=== PATIENT | female | born 1940 | race Caucasian/White ===

== ENCOUNTER → 2016-04-30 | Outpatient (REF) | payer OTHER ==
[2016-04-30 11:46] LABS: ALBUMIN 3.6 GM/DL (3.2-5.2); ALBUMIN/GLOBULIN RATIO 1.09 (1.00-1.93); ALKALINE PHOSPHATASE 91 U/L (45-117); ALT/SGPT 24 U/L (12-78); ANION GAP 9 MEQ/L (8-16); AST/SGOT 16 U/L (15-37); BILIRUBIN,TOTAL 0.4 MG/DL (0.2-1.0); BLOOD UREA NITROGEN 18 MG/DL (7-18); CALCIUM LEVEL 9.1 MG/DL (8.8-10.2); CARBON DIOXIDE LEVEL 27 MEQ/L (21-32); CHLORIDE LEVEL 107 MEQ/L (98-107); GLOMERULAR FILTRATION RATE > 60.0 (>39); GLUCOSE, FASTING 188 MG/DL (83-110); SODIUM LEVEL 143 MEQ/L (136-145); TOTAL PROTEIN 6.9 GM/DL (6.4-8.2)
[2016-04-30 11:47] LABS: POTASSIUM SERUM 5.2 MEQ/L (3.5-5.1)
== END ==
LOC: M SFHCPLAZ 07:51
PROVIDERS: ATTEND Nurse Practitioner Family
DX: E11.8 Type 2 diabetes mellitus with unspecified complications (principal)

== ENCOUNTER → 2016-10-27 | Outpatient (REF) | payer OTHER ==
[2016-10-27 12:18] LABS: ALBUMIN 3.6 GM/DL (3.2-5.2); ALBUMIN/GLOBULIN RATIO 1.03 (1.00-1.93); ALKALINE PHOSPHATASE 93 U/L (45-117); ALT/SGPT 29 U/L (12-78); ANION GAP 10 MEQ/L (8-16); AST/SGOT 20 U/L (15-37); BILIRUBIN,TOTAL 0.3 MG/DL (0.2-1.0); BLOOD UREA NITROGEN 19 MG/DL (7-18); CARBON DIOXIDE LEVEL 24 MEQ/L (21-32); CHLORIDE LEVEL 110 MEQ/L (98-107); CREATININE FOR GFR 0.94 MG/DL (0.55-1.02); GLOMERULAR FILTRATION RATE > 60.0 (>39); GLUCOSE, FASTING 161 MG/DL (83-110); POTASSIUM SERUM 4.5 MEQ/L (3.5-5.1); SODIUM LEVEL 144 MEQ/L (136-145); TOTAL PROTEIN 7.1 GM/DL (6.4-8.2)
== END ==
LOC: M SFHCPLAZ 08:21
PROVIDERS: ATTEND Nurse Practitioner Family
DX: E11.8 Type 2 diabetes mellitus with unspecified complications (principal)

== ENCOUNTER → 2017-03-30 | Outpatient (REF) | payer MEDICARE ==
[2017-03-30 12:04] LABS: ESTIMATED AVERAGE GLUCOSE 180 MG/DL (60-110); HEMOGLOBIN A1c 7.9 %
[2017-03-30 12:15] LABS: ANION GAP 9 MEQ/L (8-16); BLOOD UREA NITROGEN 20 MG/DL (7-18); CALCIUM LEVEL 9.5 MG/DL (8.8-10.2); CARBON DIOXIDE LEVEL 26 MEQ/L (21-32); CHLORIDE LEVEL 106 MEQ/L (98-107); GLOMERULAR FILTRATION RATE 57.4 (>39); GLUCOSE, FASTING 200 MG/DL (70-100); POTASSIUM SERUM 5.1 MEQ/L (3.5-5.1); SODIUM LEVEL 141 MEQ/L (136-145)
[2017-03-30 12:28] LABS: MAU/CREAT RATIO 42.6 MCG/MG (0.0-30.0)
== END ==
LOC: M SFHCPLAZ 09:20
DX: E11.319 Type 2 diabetes mellitus with unspecified diabetic retinopathy without macular edema (principal); R80.9 Proteinuria, unspecified
CPT/HCPCS: 83036

== ENCOUNTER 2017-08-06 08:06 | Day surgery (SDC) | payer MEDICARE ==
[~2017-08-06 08:06] MED LIST: OFLOXACIN 0.3 % (OCUFLOX) OPTH SOL 5ML OS; PHENYLEPHRINE 2.5% OPHTH SOL 2ML OS; PROPARACAINE 0.5% OPHTH SOL 15ML OS; TROPICAMIDE 1% OPHTH SOLN 2ML OS
[2017-08-06 08:40] LABS: BEDSIDE GLUCOSE 172 MG/DL (83-110)
[2017-08-06] MEDS: PROPARACAINE 0.5% OPHTH SOL 15ML OS (08:46)
[2017-08-06] MEDS: TROPICAMIDE 1% OPHTH SOLN 2ML OS (08:46)
[2017-08-06] MEDS: OFLOXACIN 0.3 % (OCUFLOX) OPTH SOL 5ML OS (08:46)
[2017-08-06] MEDS: PHENYLEPHRINE 2.5% OPHTH SOL 2ML OS (08:47)
[2017-08-06] MEDS: LIDOCAINE 0.75%/EPINEPHRINE 0.025% IN BSS 1ML SYR INTRACAMERAL (OR ONLY) As Ordered (09:00)
[2017-08-06] MEDS ORDERED: fentaNYL 100 MCG/2 ML INJECTION (J3010) As Ordered (09:01)
[2017-08-06] MEDS ORDERED: MIDAZOLAM INJ 2 MG/2 ML VIAL (J2250) As Ordered (09:01)
[2017-08-06] MEDS: POVIDONE-IODINE 5% OPHTH PREP SOL 30ML As Ordered (09:58)
[2017-08-06] MEDS: CEFUROXIME 1MG/0.1ML INTRACAMERAL INJ As Ordered (10:05)
[2017-08-06] MEDS: DUOVISC (0.50ML VISCOAT/0.55ML PROVISC) OPHTH KIT As Ordered (10:05)
[2017-08-06] MEDS: BALANCED SALT IRRIGATION SOLUTION 500ML BAG (FOR OR EYE MACHINE) As Ordered (10:05)
== END 2017-08-06 11:10 | disposition home or self-care (01) ==
LOC: M SDC 08:06
DX: H25.12 Age-related nuclear cataract, left eye (principal); E11.9 Type 2 diabetes mellitus without complications; Z79.4 Long term (current) use of insulin; I10 Essential (primary) hypertension; E78.5 Hyperlipidemia, unspecified; Z79.899 Other long term (current) drug therapy
CPT/HCPCS: 66984

== ENCOUNTER 2017-08-13 07:00 | Day surgery (SDC) | payer MEDICARE ==
[2017-08-13] MEDS: PHENYLEPHRINE 2.5% OPHTH SOL 2ML OD (07:53)
[2017-08-13] MEDS: TROPICAMIDE 1% OPHTH SOLN 2ML OD (07:53)
[2017-08-13] MEDS: PROPARACAINE 0.5% OPHTH SOL 15ML OD (07:53)
[2017-08-13] MEDS: OFLOXACIN 0.3 % (OCUFLOX) OPTH SOL 5ML OD (07:53)
[2017-08-13 08:01] LABS: BEDSIDE GLUCOSE 97 MG/DL (83-110)
[2017-08-13] MEDS ORDERED: fentaNYL 100 MCG/2 ML INJECTION (J3010) As Ordered (08:15)
[2017-08-13] MEDS ORDERED: MIDAZOLAM INJ 2 MG/2 ML VIAL (J2250) As Ordered (08:15)
[2017-08-13] MEDS: BALANCED SALT IRRIGATION SOLUTION 500ML BAG (FOR OR EYE MACHINE) As Ordered (08:21)
[2017-08-13] MEDS: DUOVISC (0.50ML VISCOAT/0.55ML PROVISC) OPHTH KIT As Ordered (08:21)
[2017-08-13] MEDS: POVIDONE-IODINE 5% OPHTH PREP SOL 30ML As Ordered (08:21)
[2017-08-13] MEDS: CEFUROXIME 1MG/0.1ML INTRACAMERAL INJ As Ordered (08:22)
[2017-08-13] MEDS: LIDOCAINE 0.75%/EPINEPHRINE 0.025% IN BSS 1ML SYR INTRACAMERAL (OR ONLY) As Ordered (08:22)
== END 2017-08-13 09:18 | disposition home or self-care (01) ==
LOC: M SDC 07:00
DX: H25.11 Age-related nuclear cataract, right eye (principal); H21.501 Unspecified adhesions of iris, right eye; H57.03 Miosis; H40.031 Anatomical narrow angle, right eye; E11.9 Type 2 diabetes mellitus without complications; E78.5 Hyperlipidemia, unspecified; M12.9 Arthropathy, unspecified; Z79.4 Long term (current) use of insulin; Z90.710 Acquired absence of both cervix and uterus; Z79.84 Long term (current) use of oral hypoglycemic drugs
CPT/HCPCS: 66982

== ENCOUNTER → 2018-06-28 | Outpatient (REF) | payer MEDICARE ==
[~2018-06-28] MED LIST changes: +ATOR80TA59 PO; +HUMU1INJ SC; +LISI10TA4 PO; +METF10004 PO; -OFLOXACIN 0.3 % (OCUFLOX) OPTH SOL 5ML OS; -PHENYLEPHRINE 2.5% OPHTH SOL 2ML OS; -PROPARACAINE 0.5% OPHTH SOL 15ML OS; +TESS100C PO; -TROPICAMIDE 1% OPHTH SOLN 2ML OS; +ZITHTAB PO
[2018-06-28 13:11] LABS: CALCIUM LEVEL 9.4 MG/DL (8.8-10.2); CHOLESTEROL RISK RATIO 2.533 (<5); CREATININE FOR GFR 1.12 MG/DL (0.55-1.30); FREE T4 1.14 NG/DL (0.76-1.46); GLOMERULAR FILTRATION RATE 50.2 (>39); THYROID STIMULATING HORMONE 3.53 uIU/ML (0.358-3.740); TOTAL 25(OH) VITAMIN D 79.2 NG/ML (30.0-100.0)
[2018-06-28 13:34] LABS: HEMOGLOBIN A1c 8.2 %
== END ==
LOC: M SFHCPLAZ 09:55
PROVIDERS: ATTEND Family Medicine
DX: E03.9 Hypothyroidism, unspecified (principal); E11.9 Type 2 diabetes mellitus without complications; E78.5 Hyperlipidemia, unspecified; I10 Essential (primary) hypertension; E55.9 Vitamin D deficiency, unspecified

== ENCOUNTER → 2018-10-01 | Outpatient (CLI) | payer MEDICARE ==
--- NOTE | 2018-10-04 15:36 | DEXA ---
AP SPINE L1 - L4 1.518 2.6 4.4 LT FEMUR TOTAL 1.114 0.8 2.7 LT NECK 1.041 0.0 2.1 RT FEMUR TOTAL 1.126 0.9 2.8 RT NECK 1.028 -0.0 -2.0 TOTAL BODY TOTAL OTHER COMMENTS: Normal bone densitometry of the spine and hips. FOLLOW-UP: Recommendation for the next bone density exam: 5 years. ELISE
== END ==
LOC: M WHC 08:34
PROVIDERS: ATTEND Family Medicine
DX: M81.0 Age-related osteoporosis without current pathological fracture (principal)

== ENCOUNTER → 2018-10-01 | Outpatient (REF) | payer MEDICARE ==
[2018-10-01 10:31] LABS: CALCIUM LEVEL 8.9 MG/DL (8.8-10.2); CREATININE FOR GFR 1.18 MG/DL (0.55-1.30); GLOMERULAR FILTRATION RATE 47.3 (>39); POTASSIUM SERUM 4.3 MEQ/L (3.5-5.1)
[2018-10-01 10:43] LABS: MAU/CREAT RATIO 34.6 MCG/MG (0.0-30.0)
[2018-10-01 10:52] LABS: HEMOGLOBIN A1c 8.8 %
== END ==
LOC: M SFHCPLAZ 08:21
PROVIDERS: ATTEND Family Medicine
DX: E11.9 Type 2 diabetes mellitus without complications (principal); I10 Essential (primary) hypertension

== ENCOUNTER → 2018-11-19 | Outpatient (REF) | payer MEDICARE ==
[2018-11-19 19:31] LABS: CALCIUM LEVEL 9.1 MG/DL (8.8-10.2); CREATININE FOR GFR 1.28 MG/DL (0.55-1.30); MAGNESIUM LEVEL 1.6 MG/DL (1.8-2.4); POTASSIUM SERUM 4.9 MEQ/L (3.5-5.1)
[2018-11-19 20:29] LABS: MALB URINE SIEMENS 67.2 MG/L
== END ==
LOC: M SFHCPLAZ 15:03
PROVIDERS: ATTEND Family Medicine
DX: I10 Essential (primary) hypertension (principal); R80.9 Proteinuria, unspecified